=== PATIENT | female | born 1985 | race Caucasian/White ===

== ENCOUNTER 2017-02-23 12:31 | Outpatient (CLI) | payer OTHER ==
--- NOTE | 2017-02-23 15:04 | RAD ---
RADIOGRAPH CERVICAL SPINE 8 VIEWS: DATE: 02-23-17 Attention Kiah in billing: This is indeed an 8 view study. HISTORY: 31-year-old female with M54.2 cervicalgia. COMPARISON: None. TECHNIQUE: Three lateral views in neutral, flexion, and extension. Swimmer's view. AP view. Open mouth view. Robert ateral oblique views. FINDINGS: Alignment is normal. Vertebral body heights and disc spaces are maintained. There is no prevertebral soft tissue swelling. There is no osseous neuroforaminal stenosis, fracture, significant osteophyte s, or any other focal osseous abnormality. There is no instability between flexion and extension. The re is loss of lordosis. IMPRESSION: 1. Loss of lordosis, which could be due to muscle spasm or positioning. 2. Otherwise, negative. jessica POS: CHRIS
== END 2017-02-23 12:32 | disposition home or self-care (01) ==
LOC: SCSRAD 12:31
PROVIDERS: ATTEND Family Medicine
DX: M54.2 Cervicalgia (principal); M40.50 Lordosis, unspecified, site unspecified
CPT/HCPCS: 72052

== ENCOUNTER 2017-04-07 11:52 | Outpatient (CLI) | payer OTHER ==
--- NOTE | 2017-04-07 13:52 | RAD ---
LUMBAR SPINE THREE VIEWS: History: Back pain. FINDINGS: There are five lumbar type vertebrae. Pedicles are intact. Rightward convex rotatory scoliotic curvat ure of the thoracolumbar junction is apparent. Vertebral body height and AP alignment are maintained. No acute fracture or dislocation. IMPRESSION: No acute osseous abnormalities are demonstrated. POS: CHRIS
== END 2017-04-07 11:53 | disposition home or self-care (01) ==
LOC: RAD 11:52
DX: M54.9 Dorsalgia, unspecified (principal); B19.20 Unspecified viral hepatitis C without hepatic coma
CPT/HCPCS: 72100

== ENCOUNTER 2017-04-29 08:53 | Outpatient (CLI) | payer OTHER | END 2017-04-29 08:54 | disposition home or self-care (01) | LOC: BICCT 08:53 | PROVIDERS: ATTEND Family Medicine | DX: B18.2 Chronic viral hepatitis C (principal) | CPT/HCPCS: 74176 ==

== ENCOUNTER 2017-05-04 15:52 | Outpatient (CLI) | payer OTHER | END 2017-05-04 15:53 | disposition home or self-care (01) | LOC: BICMRI 15:52 | PROVIDERS: ATTEND Family Medicine | DX: M54.2 Cervicalgia (principal); M50.30 Other cervical disc degeneration, unspecified cervical region | CPT/HCPCS: 72141 ==

== ENCOUNTER 2017-09-06 21:09 | Emergency (ER) | payer OTHER | END 2017-09-06 22:40 | disposition home or self-care (01) | LOC: ERS 21:09 | DX: S20.111A Abrasion of breast, right breast, initial encounter (principal); F41.9 Anxiety disorder, unspecified; F43.10 Post-traumatic stress disorder, unspecified; F17.210 Nicotine dependence, cigarettes, uncomplicated; Z79.899 Other long term (current) drug therapy; X58.XXXA Exposure to other specified factors, initial encounter | CPT/HCPCS: 99283 ==

== ENCOUNTER 2017-11-19 18:53 | Emergency (ER) | payer OTHER ==
[2017-11-19 21:07] LABS: #Basophils 0.1 thou/uL (0.0-0.2); #Eosinphils 0.1 thou/uL (0.0-0.7); #Lymphocytes 5.5 thou/uL (1.20-3.40); #Monocytes 0.7 thou/uL (0.11-0.59); #Neutrophils 6.7 thou/uL (1.40-6.50); %Eosinophils 0.5 % (0.0-10.0); %Lymphocytes 42.2 % (21.0-51.0); %Monocytes 5.1 % (0.0-10.0); %Neutrophils 51.2 % (42.0-75.0); Mean Corpuscular HGB CONC 34.5 g/dL (32.0-36.0); Mean Corpuscular Hemoglobin 30.8 pg (27.0-31.0); Mean Platelet Volume 8.7 fL (7.4-10.4); Platelet Count 345 thou/uL (130-400); RBC Distribution Width 12.5 % (11.5-14.5); Red Blood Cell (RBC) Count 4.55 mill/uL (4.20-5.40); White Blood Cell (WBC) Count 13.1 thou/uL (4.8-10.8)
[2017-11-19 21:25] LABS: ALT (SGPT) 10 U/L (8-55); AST (SGOT) 12 U/L (5-34); Albumin 4.7 g/dL (3.5-5.0); Alkaline Phosphatase 71 U/L (40-150); Anion Gap 15 mmol/L (10-20); BUN (Urea Nitrogen) 10 mg/dL (7.0-18.7); Bilirubin, Total 0.4 mg/dL (0.2-1.2); Calc. Creatinine Clearance 0 mL/min (70-130); Calcium 10.2 mg/dL (7.8-10.44); Carbon Dioxide 23 mmol/L (22-29); Chloride 106 mmol/L (98-107); Estimated GFR-MDRD 78; Glucose 77 mg/dL (70-105); Potassium 3.8 mmol/L (3.5-5.1); Protein, Total 8.7 g/dL (6.0-8.3); Sodium 140 mmol/L (136-145)
[2017-11-19 21:30] LABS: Amphetamine Not Detected (NotDetected); Barbiturates Screen Not Detected (NotDetected); Benzodiazepine Screen Detected (NotDetected); Cocaine Metabolite Screen Not Detected (NotDetected); Medtox Control Line Valid? VALID (VALID); Medtox Reader # READER 1; Methadone Detected (NotDetected); Methamphetamine Not Detected (NotDetected); Opiate Screen Not Detected (NotDetected); Oxycodone Screen Not Detected (NotDetected); Phencyclidine (PCP) Not Detected (NotDetected); THC/Cannabinoid Screen Not Detected (NotDetected); Tricyclic Screen Not Detected (NotDetected)
== END 2017-11-19 22:16 | disposition home or self-care (01) ==
LOC: ERS 18:53
DX: R51 Headache (principal); T43.025A Adverse effect of tetracyclic antidepressants, initial encounter; F17.210 Nicotine dependence, cigarettes, uncomplicated
CPT/HCPCS: 80053; 80306; 85025; 96365; 96375